=== PATIENT | female | born 1980 | race Caucasian/White ===

== ENCOUNTER 2023-10-31 08:56 | Emergency (ER) | payer BC ==
[2023-10-31 09:05] VITALS: BP 131/81; PULSE 73; RESP 16; TEMP 98; BMI 39.1
[2023-10-31] MEDS ORDERED: IBUPROFEN 600 MG TABLET (FP) PO ONE ×2 (09:34→09:54)
== END 2023-10-31 11:17 | disposition home or self-care (01) ==
LOC: FER 08:56
PROC: 0QSNXZZ Reposition Right Metatarsal, External Approach (ICD-10-PCS; principal; 2023-10-31)
DX: S92.354A Nondisplaced fracture of fifth metatarsal bone, right foot, initial encounter for closed fracture (principal); W10.9XXA Fall (on) (from) unspecified stairs and steps, initial encounter
CPT/HCPCS: 73660-TC-FY; 99283-25